=== PATIENT | female | born 1985 | race Asian ===

== ENCOUNTER 2018-07-03 10:13 | Emergency (ER) | payer MEDICAID, OTHER ==
[~2018-07-03] VITALS: Ht 152.4 cm; Wt 56.7 kg
[2018-07-03] MEDS ORDERED: IV NORMAL SALINE 1000ML BAG 1,000 ML IV SCH (13:46)
[2018-07-03] MEDS ORDERED: KETOROLAC 30 MG/ML VIAL. IV ONE (14:00)
[2018-07-03] MEDS ORDERED: ONDANSETRON PF 4 MG/2 ML VIAL. IV ONE (14:00)
[2018-07-03 14:09] LABS: BASO # 0.1 x10^3/uL (0.0-0.2); BASO % 1 % (0-3); EOS # 0.1 x10^3/uL (0.0-0.7); EOS % 3 % (0-3); HEMATOCRIT 35.7 % (36.0-47.0); HEMOGLOBIN 11.7 g/dL (12.0-15.5); LYMPH # 1.3 x10^3/uL (1.0-4.8); LYMPH % 30 % (24-48); MEAN CORPUSCULAR HEMOGLOBIN 26 pg (25-35); MEAN CORPUSCULAR HGB CONC 33 g/dL (31-37); MEAN CORPUSCULAR VOLUME 81 fL (79-100); MONO # 0.4 x10^3/uL (0.0-1.1); MONO % 10 % (0-9); NEUT # 2.4 x10^3uL (1.8-7.7); NEUT % 56 % (31-73); PLATELET COUNT 226 x10^3/uL (140-400); RED BLOOD COUNT 4.43 x10^6/uL (3.50-5.40); RED CELL DISTRIBUTION WIDTH 13.8 % (11.5-14.5); WHITE BLOOD COUNT 4.3 x10^3/uL (4.0-11.0)
[2018-07-03 14:27] LABS: BILIRUBIN,URINE NEGATIVE (NEG); CLARITY,URINE CLEAR; COLOR,URINE YELLOW; NITRITE,URINE NEGATIVE (NEG); PROTEIN,URINE NEGATIVE (NEG-TRACE)
[2018-07-03 14:28] LABS: CALCIUM 8.7 mg/dL (8.5-10.1); CREATININE 0.6 mg/dL (0.6-1.0); GFR 113.8; POTASSIUM 3.6 mmol/L (3.5-5.1)
[2018-07-03 14:30] LABS: U PREG PATIENT NEGATIVE (NEG)
[2018-07-03 14:39] LABS: BACTERIA,URINE MODERATE /HPF (0-FEW); RBC,URINE 0 /HPF (0-2); SQUAMOUS EPITHELIAL CELL,UR MANY /LPF
[2018-07-03 14:40] LABS: ALBUMIN 3.7 g/dL (3.4-5.0); ALBUMIN/GLOBULIN RATIO 0.8 (1.0-1.7); TOTAL BILIRUBIN 0.5 mg/dL (0.2-1.0); TOTAL PROTEIN 8.3 g/dL (6.4-8.2)
--- NOTE | 2018-07-03 14:44 | PHYS DOC ---
Past Medical History Past Medical History: No Pertinent History Past Surgical History: Tonsillectomy Alcohol Use: None Drug Use: None Adult General Chief Complaint Chief Complaint: ABDOMINAL PAIN HPI HPI Patient is a 33-year-old female who presents with complaint of lower abdominal pain that started earlier today. Patient rates the pain as a 7 out of 10. She denies any nausea or vomiting. She also denies any diarrhea. Patient states that pain is worsened with walking and with palpation. She states that nothing improves her pain. Patient recently had an IUD placed and wonders if that is causing her pain. She denies any loss of appetite or fever. Review of Systems Review of Systems Constitutional: Denies fever or chills [] Respiratory: Denies cough or shortness of breath [] Cardiovascular: No additional information not addressed in HPI [] GI: Complains of lower abdominal pain without vomiting or diarrhea [] : Denies dysuria or hematuria [] All other systems were reviewed and found to be within normal limits, except as documented in this note. Current Medications Current Medications Current Medications Medications (Trade) Dose Ordered Sig/Vandana Start Time Stop Time Status Last Admin Dose Admin Info (CONTRAST GIVEN -- Rx MONITORING) 1 each PRN DAILY PRN 07/03/18 15:15 07/05/18 15:14 Iohexol (Omnipaque 300 Mg/ml) 75 ml 1X ONCE 07/03/18 15:15 07/03/18 15:16 DC 07/03/18 15:15 75 ML Ketorolac Tromethamine (Toradol 30mg Vial) 30 mg 1X ONCE 07/03/18 14:00 07/03/18 14:02 DC 07/03/18 14:37 30 MG Ondansetron HCl (Zofran) 4 mg 1X ONCE 07/03/18 14:00 07/03/18 14:02 DC 07/03/18 14:38 4 MG Sodium Chloride 1,000 ml @ 1,000 mls/hr Q1H 07/03/18 13:46 07/03/18 14:45 DC 07/03/18 14:36 1,000 MLS/HR Allergies Allergies Allergies Coded Allergies Type Severity Reaction Last Updated Verified No Known Drug Allergies 08/04/15 No Physical Exam Physical Exam Constitutional: Well developed, well nourished, no acute distress, non-toxic appearance. [] HENT: Normocephalic, atraumatic, bilateral external ears normal, oropharynx moist, no oral exudates, nose normal. [] Eyes: PERRLA, EOMI, conjunctiva normal, no discharge. [] Neck: Normal range of motion, no tenderness, supple, no stridor. [] Cardiovascular: Regular rate and rhythm [] Lungs & Thorax: Bilateral breath sounds clear to auscultation [] Abdomen: Bowel sounds normal, soft with moderate reported tenderness in the periumbilical and right lower abdomen. [] Skin: Warm, dry, no erythema, no rash. [] Extremities: No tenderness, no cyanosis, no clubbing, ROM intact, no edema. [] Neurologic: Alert and oriented X 3, normal motor function, normal sensory function, no focal deficits noted. [] Current Patient Data Vital Signs Vital Signs Date Time Temp Pulse Resp B/P (MAP) Pulse Ox O2 Delivery O2 Flow Rate FiO2 07/03/18 13:25 97.3 74 16 125/99 (108) 96 Room Air 97.3 Lab Values Laboratory Tests Test 07/03/18 13:17 07/03/18 13:53 Urine Collection Type Unknown Urine Color Yellow Urine Clarity Clear Urine pH 7.0 Urine Specific [place] 1.010 Urine Protein Negative mg/dL (NEG-TRACE) Urine Glucose (UA) Negative mg/dL (NEG) Urine Ketones (Stick) Negative mg/dL (NEG) Urine Blood Negative (NEG) Urine Nitrite Negative (NEG) Urine Bilirubin Negative (NEG) Urine Urobilinogen Dipstick 1.0 mg/dL (0.2 mg/dL) Urine Leukocyte Esterase Trace (NEG) Urine RBC 0 /HPF (0-2) Urine WBC 1-4 /HPF (0-4) Urine Squamous Epithelial Cells Many /LPF Urine Bacteria Moderate /HPF (0-FEW) Urine Test Negative (NEG) White Blood Count 4.3 x10^3/uL (4.0-11.0) Red Blood Count 4.43 x10^6/uL (3.50-5.40) Hemoglobin 11.7 g/dL (12.0-15.5) L Hematocrit 35.7 % (36.0-47.0) L Mean Corpuscular Volume 81 fL (79-100) Mean Corpuscular Hemoglobin 26 pg (25-35) Mean Corpuscular Hemoglobin Concent 33 g/dL (31-37) Red Cell Distribution Width 13.8 % (11.5-14.5) Platelet Count 226 x10^3/uL (140-400) Neutrophils (%) (Auto) 56 % (31-73) Lymphocytes (%) (Auto) 30 % (24-48) Monocytes (%) (Auto) 10 % (0-9) H Eosinophils (%) (Auto) 3 % (0-3) Basophils (%) (Auto) 1 % (0-3) Neutrophils # (Auto) 2.4 x10^3uL (1.8-7.7) Lymphocytes # (Auto) 1.3 x10^3/uL (1.0-4.8) Monocytes # (Auto) 0.4 x10^3/uL (0.0-1.1) Eosinophils # (Auto) 0.1 x10^3/uL (0.0-0.7) Basophils # (Auto) 0.1 x10^3/uL (0.0-0.2) Sodium Level 138 mmol/L (136-145) Potassium Level 3.6 mmol/L (3.5-5.1) Chloride Level 103 mmol/L (98-107) Carbon Dioxide Level 24 mmol/L (21-32) Anion Gap 11 (6-14) Blood Urea Nitrogen 12 mg/dL (7-20) Creatinine 0.6 mg/dL (0.6-1.0) Estimated GFR (Cockcroft-Gault) 113.8 BUN/Creatinine Ratio 20 (6-20) Glucose Level 99 mg/dL (70-99) Calcium Level 8.7 mg/dL (8.5-10.1) Total Bilirubin 0.5 mg/dL (0.2-1.0) Aspartate Amino Transferase (AST) 18 U/L (15-37) Alanine Aminotransferase (ALT) 20 U/L (14-59) Alkaline Phosphatase 80 U/L (46-116) Total Protein 8.3 g/dL (6.4-8.2) H Albumin 3.7 g/dL (3.4-5.0) Albumin/Globulin Ratio 0.8 (1.0-1.7) L Lipase 133 U/L (73-393) Laboratory Tests 07/03/18 13:53 Laboratory Tests 07/03/18 13:53 EKG EKG [] Radiology/Procedures Radiology/Procedures [] Impressions: CT abdomen pelvis with contrast dated 07/03/2018. No comparison available. CLINICAL INDICATION: Abdominal pain. Status post IUD placement. TECHNIQUE: Contiguous axial imaging of the abdomen and pelvis performed following the intravenous administration of 75 cc Omnipaque 300. One or more of the following individualized dose reduction techniques were utilized for this examination: 1. Automated exposure control 2. Adjustment of the mA and/or kV according to patient size 3. Use of iterative reconstruction technique. FINDINGS: Limited images of lung bases show patchy dependent opacity in the lower lobes, likely atelectasis. There are tiny bilateral pleural effusions. Heart size upper limits of normal. No pericardial effusion. Liver, spleen, pancreas, adrenal glands, gallbladder and kidneys are unremarkable. No hydronephrosis. Unopacified GI tract normal in caliber and contour. No focal bowel wall thickening. No inflammatory stranding in the mesentery. The appendix is normal in caliber. No ascites or lymphadenopathy. Abdominal aorta normal in caliber. Images of pelvis show mildly distended urinary bladder. Questionable mild diffuse bladder wall thickening. The uterus is anteverted. There is an intrauterine contraceptive device that appears adequately positioned in the endometrial canal. Probable small collapsed cyst at the right ovary. The ovaries are otherwise unremarkable. No free fluid or pelvic adenopathy. Bone windows show no acute findings. IMPRESSION: 1. No acute abnormality of abdomen or pelvis. Adequate position of the IUD. 2. Mild bibasilar airspace disease, likely atelectasis. There are tiny bilateral pleural effusions. 3. Otherwise no significant abnormality. Normal appendix. Electronically signed by: Jay Jay Best MD (07/03/2018 4:23 PM) [facility] [place] DICTATED and SIGNED BY: JAY JAY BEST MD Course & Med Decision Making Course & Med Decision Making Pertinent Labs and Imaging studies reviewed. (See chart for details) [] Odalis Disclaimer Odalis Disclaimer This electronic medical record was generated, in whole or in part, using a voice recognition dictation system. Departure Departure Impression: Primary Impression: Lower abdominal pain Disposition: HOME, SELF-CARE Condition: STABLE Referrals: CAPRI MCLAUGHLIN MD (PCP) Patient Instructions: Abdominal Pain Scripts Ondansetron Hcl (ZOFRAN) 4 Mg Tablet 4 MG PO PRN TID PRN for NAUSEA, #10 nausea/vomiting Prov: PARKER CORDOVA Jr. DO 07/03/18 Tramadol Hcl (TRAMADOL HCL) 50 Mg Tablet 50 MG PO Q6HRS PRN for PAIN, #10 TAB Prov: PARKER CORDOVA Jr. DO 07/03/18 PARKER CORDOVA Jr. DO Jul 03, 2018 14:44
[2018-07-03] MEDS ORDERED: CONTRAST GIVEN. MC PRN (15:15)
[2018-07-03] MEDS ORDERED: IOHEXOL 300 MG/ML 100ML VIAL. IV ONE (15:15)
--- NOTE | 2018-07-03 16:27 | RAD ---
CT abdomen pelvis with contrast dated 07/03/2018. No comparison available. CLINICAL INDICATION: Abdominal pain. Status post IUD placement. TECHNIQUE: Contiguous axial imaging of the abdomen and pelvis performed following the intravenous administration of 75 cc Omnipaque 300. One or more of the following individualized dose reduction techniques were utilized for this examination: 1. Automated exposure control 2. Adjustment of the mA and/or kV according to patient size 3. Use of iterative reconstruction technique. FINDINGS: Limited images of lung bases show patchy dependent opacity in the lower lobes, likely atelectasis. There are tiny bilateral pleural effusions. Heart size upper limits of normal. No pericardial effusion. Liver, spleen, pancreas, adrenal glands, gallbladder and kidneys are unremarkable. No hydronephrosis. Unopacified GI tract normal in caliber and contour. No focal bowel wall thickening. No inflammatory stranding in the mesentery. The appendix is normal in caliber. No ascites or lymphadenopathy. Abdominal aorta normal in caliber. Images of pelvis show mildly distended urinary bladder. Questionable mild diffuse bladder wall thickening. The uterus is anteverted. There is an intrauterine contraceptive device that appears adequately positioned in the endometrial canal. Probable small collapsed cyst at the right ovary. The ovaries are otherwise unremarkable. No free fluid or pelvic adenopathy. Bone windows show no acute findings. IMPRESSION: 1. No acute abnormality of abdomen or pelvis. Adequate position of the IUD. 2. Mild bibasilar airspace disease, likely atelectasis. There are tiny bilateral pleural effusions. 3. Otherwise no significant abnormality. Normal appendix. Electronically signed by: Jay Jay Best MD (07/03/2018 4:23 PM) [facility] [place]
[2018-07-03] MEDS ORDERED: ONDA4TAB7 PO (16:40)
[2018-07-03] MEDS ORDERED: TRAM50TA PO (16:40)
[2018-07-03 17:20] VITALS: BP 101/62
== END 2018-07-03 17:30 | disposition home or self-care (01) ==
LOC: ER 10:13
DX: R10.31 Right lower quadrant pain (principal); R10.33 Periumbilical pain; J90 Pleural effusion, not elsewhere classified
CPT/HCPCS: 36415; 74177; 80053; 81001; 81025; 83690; 85025; 87086; 96374; 96375; 99284; J1885; J2405; J7030; Q9967